=== PATIENT | female | born 1935 | race Caucasian/White ===

== ENCOUNTER 2017-06-09 09:13 | Inpatient (IN) | payer OTHER ==
[2017-05-08 14:15] VITALS: BMI 27.0
--- NOTE | 2017-05-08 14:48 | PAT Medication Instructions ---
Service Date May 08, 2017. Current Home Medication List Acetaminophen (Tylenol), 650-1,300 MG PO PRN Albuterol Hfa (Ventolin Hfa), 2-4 PUFFS INH Q6H PRN for PRN Amlodipine (Norvasc), 10 MG PO QAM Ferrous Sulfate (Iron), 325 MG PO QAM Fluticasone Furoate-Vilanterol (Breo Ellipta), 1 DOSE INH PRN Moexipril Hcl (Moexipril Hcl), 15 MG PO QAM Multivitamin (Multivitamin), 2 TAB PO QAM Paroxetine (Paxil), 20 MG PO QAM Pravastatin (Pravachol ), 20 MG PO HS Turmeric (Curcuma Longa) (Turmeric), 500 MG PO QAM [Allergy Tab], 1 TAB PO PRN Medication Instructions For Your Scheduled Surgery - Hold the following medications 2 weeks prior to surgery: Turmeric (Curcuma Longa) (Turmeric), 500 MG PO QAM - Hold the following medications the morning of surgery: [Allergy Tab], 1 TAB PO PRN Multivitamin (Multivitamin), 2 TAB PO QAM Ferrous Sulfate (Iron), 325 MG PO QAM Moexipril Hcl (Moexipril Hcl), 15 MG PO QAM - Take the following medications the morning of surgery with a sip of water: Paroxetine (Paxil), 20 MG PO QAM Fluticasone Furoate-Vilanterol (Breo Ellipta), 1 DOSE INH PRN (if needed) Amlodipine (Norvasc), 10 MG PO QAM Acetaminophen (Tylenol), 650-1,300 MG PO PRN (if needed) Albuterol Hfa (Ventolin Hfa), 2-4 PUFFS INH Q6H PRN for PRN (use if needed; bring with you to hospital morning of surgery) - Take the following medications as scheduled the night before surgery: [Allergy Tab], 1 TAB PO PRN Pravastatin (Pravachol ), 20 MG PO HS Fluticasone Furoate-Vilanterol (Breo Ellipta), 1 DOSE INH PRN (if needed) Acetaminophen (Tylenol), 650-1,300 MG PO PRN (if needed) Albuterol Hfa (Ventolin Hfa), 2-4 PUFFS INH Q6H PRN for PRN (if needed) If you have any questions please call us at [phone] or [phone] or [phone]
--- NOTE | 2017-05-08 15:22 | DIAGNOSTIC IMAGING REPORT ---
CHEST PREADMISSION(PA/LAT) CLINICAL HISTORY: Preoperative chest COMPARISON STUDY: No previous studies for comparison. FINDINGS: The heart is enlarged. There is no overt failure. Slightly prominent basilar markings are likely atelectatic. There is minimal blunting of the posterior costophrenic angles. Trace effusions cannot be excluded.[ There is no lobar consolidation IMPRESSION: Mild cardiomegaly. No evidence of acute parenchymal consolidation Electronically signed by: Alphonso Torres M.D. 05/08/2017 3:20 PM Dictated Date/Time: 05/08/2017 3:20 PM
[2017-05-08 15:26] LABS: BASO % 0.3 %; BASO ABS # 0.03 K/uL (0-0.2); COMPLETE YES; EOS % 1.5 %; HEMATOCRIT 37.8 % (37-47); IG% 0.3 %; LYMPH % 18.4 %; LYMPH ABS # 1.58 K/uL (1.2-3.4); MEAN CELL VOLUME 88.9 fL (80-100); MEAN CORPUSCULAR HEMOGLOBIN 28.9 pg (25-34); MEAN CORPUSCULAR HGB CONC 32.5 g/dl (32-36); MEAN PLATELET VOLUME 10.9 fL (7.4-10.4); MONO % 4.9 %; NEUT % 74.6 %; PLATELET COUNT 353 K/uL (130-400); RED BLOOD COUNT 4.25 M/uL (4.2-5.4)
[2017-05-08 15:36] LABS: BUN/CREATININE RATIO 19.5 (10-20); CALCIUM 8.9 mg/dl (8.5-10.1); CREATININE 0.98 mg/dl (0.60-1.20)
[2017-05-08 15:37] LABS: PARTIAL THROMBOPLASTIN RATIO 1.1; PROTHROMBIN TIME (PATIENT) 10.3 SECONDS (9.0-12.0)
[2017-05-08 15:38] LABS: URINE APPEARANCE CLEAR (CLEAR); URINE BILIRUBIN NEG (NEG); URINE COLOR YELLOW; URINE EPITHELIAL CELL AUTO >30 /lpf (0-5); URINE NITRITE NEG (NEG); URINE SPECIFIC GRAVITY 1.018 (1.000-1.030); UROBILINOGEN NEG (NEG); ZZUR CULT IF INDIC CLEAN CATCH YES
[2017-05-08 15:42] LABS: MANUAL MICROSCOPIC REQUIRED? NO; REVIEW REQ? NO
--- NOTE | 2017-06-06 16:02 | History and Physical ---
History & Physical Date Jun 06, 2017. Chief Complaint Right knee pain History of Present Illness The patient is a 82 year old female with complaints of right knee pain and disability. Xrays show severe DJD. Pt with pain and limitation of ADLs and desires to proceed with total knee arthroplasty Additional History Hepatic Disease: No Endocrine Disorder: No Kidney Disease: No Hypertension: Yes Heart Disease: No Bleeding Tendencies: No Infectious Diseases: No Other: Hyperlipidemia, depression, anemia Allergies Coded Allergies: No Known Allergies (Verified , 05/08/17) Home Medications Scheduled Acetaminophen (Tylenol), 650-1,300 MG PO PRN Amlodipine (Norvasc), 10 MG PO QAM Ferrous Sulfate (Iron), 325 MG PO QAM Fluticasone Furoate-Vilanterol (Breo Ellipta), 1 DOSE INH PRN Moexipril Hcl (Moexipril Hcl), 15 MG PO QAM Multivitamin (Multivitamin), 2 TAB PO QAM Paroxetine (Paxil), 20 MG PO QAM Pravastatin (Pravachol ), 20 MG PO HS Turmeric (Curcuma Longa) (Turmeric), 500 MG PO QAM [Allergy Tab], 1 TAB PO PRN Scheduled PRN Albuterol Hfa (Ventolin Hfa), 2-4 PUFFS INH Q6H PRN for PRN Physical Examination Skin: warm/dry Eyes: normal inspection, EOMI ENT: normal ENT inspection Head: normocephalic, atraumatic Neck: supple, no adenopathy Respiratory/Chest: lungs clear Cardiovascular: regular rate, rhythm Abdomen / GI: normal bowel sounds, non tender Extremities: + pertinent finding (Right knee neutrally aligned. Pt complains primarily of medial compartment pain. ROM ~ 0-120 degrees. Mild crepitus with ROM) Addiitonal Comments: Xrays: severe bone on bone arthritis medial compartment with complete loss of joint space. Large calcification posterior knee. Moderate PF DJD Diagnosis Right knee end-stage DJD Plan of Treatment Right total knee arthroplasty
[2017-06-09] VITALS (9 sets, daily range): BP systolic 123–176; BP diastolic 57–81; PULSE 65–70; TEMP 36.4–36.9; O2SAT 90–98; Ht 157.5 cm; Wt 68.8 kg
[~2017-06-09] VITALS: Ht 157.5 cm; Wt 68.8 kg
--- NOTE | 2017-06-09 08:07 | History & Physical Bridge Note ---
H&P Re-Evaluation Bridge Note: I have examined the patient, reviewed the History & Physical and in the interval since the performance of the History & Physical I have noted the following changes of clinical significance: No changes noted
[~2017-06-09 09:13] MED LIST: ACET650S10 PO; ACETAMINOPHEN 500 MG TAB PO SCH; ALLERGY TAB PO; AMLO-114 PO; BUPIVACAINE 0.5 % 5 MG/1 ML PF 10ML VIAL ONE; BUPIVACAINE/EPINEPHRINE 0.5% MPF 1:200,000 10 ML VIAL ONE; CEFAZOLIN 2000 MG/60 ML D5W 60 ML IV SCH; CeleBREX 200 MG CAP PO SCH; DEXAMETHASONE 4 MG TAB PO SCH; DEXAMETHASONE SOD INJ 4 MG/ML VIAL ONE; FAMOTIDINE 20 MG TAB PO SCH; FERR1TAB23 PO; FLUT1INH INH; GABAPENTIN 300 MG CAP PO SCH; LACTATED RINGER'S 1000ML 1,000 ML IV SCH; METOCLOPRAMIDE HCL 10 MG TAB PO SCH; MOEX15TA4 PO; MULT-506 PO; PARO1TAB27 PO; PRAV20TA PO; ROPIVACAINE 5MG/ML 30 ML 150 MG, BUPIVACAINE/EPINEPHR 0.5% MPF 30 ML, KETOROLAC TROMETH... INFIL SCH; SODIUM CHLORIDE 0.9% INJ 10 ML VIAL ONE; TURM1CAP4 PO; VNTHFA/IN INH
[2017-06-09] MEDS ORDERED: PROPOFOL IV EMULSION 10 MG/ML 20 ML VIAL IV ONE (09:46)
[2017-06-09] MEDS ORDERED: ONDANSETRON INJ 2 MG/ML 2 ML VIAL ONE (09:46)
[2017-06-09] MEDS ORDERED: MIDAZOLAM HCL 1 MG/ML 2ML VIAL ONE ×2 (09:47)
[2017-06-09] MEDS ORDERED: FENTANYL CITRATE INJ 50 MCG/1 ML 2 ML VIAL ONE (09:47)
[2017-06-09] MEDS ORDERED: BACITRACIN 50000 UNIT VIAL ONE (10:40)
[2017-06-09] MEDS ORDERED: ORTHO JOINT ANESTHETIC ONE (10:40)
[2017-06-09] MEDS ORDERED: POVIDONE-IODINE OP SOLN 30 ML BTL ONE (10:40)
[2017-06-09] MEDS: TRANEXAMIC ACID INJ 1,000 MG in SODIUM CHLORIDE 0.9% 100ML 100 ML IV SCH ×2 (10:58→14:51)
[2017-06-09] MEDS ORDERED: EpHEDrine SULFATE INJ 50 MG/ML AMP IV PRN (11:30)
[2017-06-09] MEDS ORDERED: ONDANSETRON INJ 2 MG/ML 2 ML VIAL IV PRN ×2 (11:30→13:00)
[2017-06-09] MEDS ORDERED: FENTANYL CITRATE INJ 50 MCG/1 ML 2 ML VIAL IV PRN (11:30)
[2017-06-09] MEDS ORDERED: PROMETHAZINE HCL INJ 6.25 MG in SODIUM CHLORIDE 0.9% 50ML 50 ML IV PRN (11:30)
[2017-06-09] MEDS ORDERED: ATROPINE SULFATE 0.1 MG/ML 5ML SYR IV PRN (11:30)
[2017-06-09] MEDS ORDERED: EpHEDrine SULFATE 50MG/5ML SYR ONE (11:40)
--- NOTE | 2017-06-09 12:22 | [facility] Post Operative Brief Note ---
Immediate Operative Summary Operative Date Jun 09, 2017. Pre-Operative Diagnosis Right knee end-stage degenerative joint disease Post-Operative Diagnosis Right knee end-stage degenerative joint disease Procedure(s) Performed Right total knee arthroplasty Surgeon Dr. Valle Aerospace Engineer Officer Armament Surgeon(s) Hiren Ren PA-C Estimated Blood Loss 10 ML Findings severe OA Specimens A. Right knee bone and tissue Complication(s) None Disposition Recovery Room / PACU
[2017-06-09] MEDS ORDERED: MAGNESIUM HYDROXIDE SUSP 30 ML UDC PO PRN (13:00)
[2017-06-09] MEDS ORDERED: ALBUTEROL HFA 8 GM INHALER INH PRN (13:00)
[2017-06-09] MEDS ORDERED: ALUMINUM/MAGNESIUM/SIMETH (MAALOX MAX) 30 ML UDC PO PRN (13:00)
[2017-06-09] MEDS ORDERED: MoRPHine SULFATE 2 MG/ML CARP IV PRN (13:00)
[2017-06-09] MEDS ORDERED: BISACODYL 10 MG SUPP PR PRN (13:00)
--- NOTE | 2017-06-09 13:36 | DIAGNOSTIC IMAGING REPORT ---
RIGHT KNEE 1 OR 2 VIEWS ROUTINE CLINICAL HISTORY: Postoperative examination COMPARISON: None. DISCUSSION: There are postsurgical changes of a total right knee arthroplasty and patellar resurfacing. The femoral and tibial components appear well seated. Overlying skin madie and surgical drains are evident. There is air within soft tissues consistent with recent surgery. Within the posterior medial soft tissues of the distal upper leg there is a fragmented 22 mm ossific nodule. IMPRESSION: Postsurgical changes of a total right knee arthroplasty. Electronically signed by: Alphonso Torres M.D. 06/09/2017 1:34 PM Dictated Date/Time: 06/09/2017 1:32 PM
--- NOTE | 2017-06-09 13:37 | Anesthesiology Progress Note ---
Anesthesia Post Op Note Date & Time Jun 09, 2017 at 13:37 Vital Signs Pain Intensity: 0 Vital Signs Past 12 Hours Date Time Temp Pulse Resp B/P (MAP) Pulse Ox O2 Delivery O2 Flow Rate FiO2 06/09/17 13:33 65 18 06/09/17 13:33 64 18 96 06/09/17 13:31 143/64 06/09/17 13:28 69 20 06/09/17 13:28 69 20 97 06/09/17 13:26 153/69 06/09/17 13:23 68 16 06/09/17 13:23 69 16 97 06/09/17 13:21 37.3 68 22 153/69 98 Nasal Cannula 10 06/09/17 13:21 140/67 06/09/17 13:18 64 18 06/09/17 13:18 64 18 97 06/09/17 13:17 65 19 06/09/17 13:17 65 19 98 06/09/17 13:16 137/64 06/09/17 13:12 63 20 06/09/17 13:12 63 20 95 06/09/17 13:11 130/62 06/09/17 13:10 62 17 98 06/09/17 13:10 62 17 06/09/17 13:07 117/60 06/09/17 13:05 64 18 06/09/17 13:05 62 18 98 06/09/17 13:02 132/60 06/09/17 13:00 64 19 06/09/17 13:00 64 19 100 06/09/17 12:56 149/61 06/09/17 12:55 68 20 100 06/09/17 12:55 67 20 06/09/17 12:52 144/56 06/09/17 12:50 37.3 66 16 144/56 (73) 97 Mask 10 06/09/17 09:55 36.6 65 18 176/81 95 Room Air Notes Mental Status: alert / awake / arousable, participated in evaluation Pt Amnestic to Procedure: Yes Nausea / Vomiting: adequately controlled Pain: adequately controlled Airway Patency, RR, SpO2: stable & adequate BP & HR: stable & adequate Hydration State: stable & adequate Neuraxial Anesthesia: was administered, sensory block is resolving Anesthetic Complications: no major complications apparent
[2017-06-09] MEDS: D5W AND 1/2NSS + 20MEQ KCL 1,000 ML IV SCH (15:41)
--- NOTE | 2017-06-09 15:45 | Medical Consult ---
Consultation Date of Consultation: Jun 09, 2017. Attending Physician: Hilario Valle M.D. Reason for Consultation: Medical management History of Present Illness This is an 82 yo F with PMHx of hypertension, hyperlipidemia, GERD, anemia, depression, COPD who does not use supplemental oxygen who presents for an elective right TKA by Dr. Valle on 06/09/17. She is awake, eating lunch and visiting with her 2 daughters present at bedside. Patient reports she is doing well, she denies having any pain currently, and has no other acute complaints. Patient plans on going home with home health services/his therapy and will be staying with her daughter, she previously lived alone in her own home. The patient's blood pressure is slightly elevated in the 140s postoperatively however she did not receive her scheduled antihypertensives today in light of surgical procedure. She is on 2 L via NC currently and is requesting to have it removed if possible. Past Medical/Surgical History Hypertension Hyperlipidemia COPD GERD Anemia Depression Social History Smoking Status: Former Smoker Alcohol Use: none Drug Use: none Housing Status: lives alone Allergies Coded Allergies: No Known Allergies (Verified , 06/09/17) Current Inpatient Medications Current Inpatient Medications Medications (Trade) Dose Ordered Sig/Deonna Route Start Time Stop Time Status Last Admin Dose Admin Lactated Ringer's 1,000 ml @ 15 mls/hr Q24H IV 06/09/17 06:00 06/10/17 05:59 06/09/17 10:51 15 MLS/HR Lactated Ringer's 1,000 ml @ 60 mls/hr [id number] IV 06/09/17 06:00 06/09/17 22:39 Cefazolin Sodium 60 ml @ 100 mls/hr PREOP IV 06/09/17 06:00 06/09/17 18:00 06/09/17 11:14 100 MLS/HR Acetaminophen (Tylenol Tab) 1,000 mg PREOP PO 06/09/17 06:00 06/09/17 18:00 06/09/17 10:15 1,000 MG Celecoxib (CeleBREX CAP) 200 mg PREOP PO 06/09/17 06:00 06/09/17 18:00 06/09/17 10:15 200 MG Dexamethasone (Decadron Tab) 8 mg PREOP PO 06/09/17 06:00 06/09/17 18:00 06/09/17 10:15 8 MG Famotidine (Pepcid Tab) 20 mg PREOP PO 06/09/17 06:00 06/09/17 18:00 06/09/17 10:15 20 MG Gabapentin (Neurontin Cap) 300 mg PREOP PO 06/09/17 06:00 06/09/17 18:00 06/09/17 10:15 300 MG Metoclopramide HCl (Reglan Tab) 10 mg PREOP PO 06/09/17 06:00 06/09/17 18:00 06/09/17 10:15 10 MG Tranexamic Acid 1000 mg/Sodium Chloride 110 ml @ 660 mls/hr TODAY@06,0630 IV 06/09/17 06:00 06/09/17 18:00 06/09/17 10:58 660 MLS/HR Fentanyl Citrate (Fentanyl Inj) 50 mcg Q5M PRN IV 06/09/17 11:30 06/09/17 16:30 Ondansetron HCl (Zofran Inj) 4 mg ONE PRN IV 06/09/17 11:30 06/09/17 16:30 Promethazine HCl 6.25 mg/Sodium Chloride 50.25 ml @ 202 mls/hr ONE PRN IV 06/09/17 11:30 06/09/17 16:30 Ephedrine Sulfate (EpHEDrine SULFATE INJ) 5 mg Q5M PRN IV 06/09/17 11:30 06/09/17 16:30 Atropine Sulfate (Atropine Sulfate 0.1MG/Ml Inj) 0.5 mg Q1M PRN IV 06/09/17 11:30 06/09/17 16:30 Albuterol (Ventolin Hfa Inhaler) 2 puffs Q6H PRN INH 06/09/17 13:00 07/09/17 12:59 Amlodipine Besylate (Norvasc Tab) 10 mg QAM PO 06/10/17 09:00 07/10/17 08:59 Paroxetine HCl (pAXil TAB) 20 mg QAM PO 06/10/17 09:00 07/10/17 08:59 Pravastatin Sodium (Pravachol Tab) 20 mg HS PO 06/09/17 21:00 07/09/17 20:59 Miscellaneous Information (Order Awaiting Action) 1 ea QS N/A 06/09/17 16:00 07/09/17 15:59 Enalapril Maleate (Vasotec Tab) 20 mg QAM PO 06/10/17 09:00 07/10/17 08:59 Morphine Sulfate (MoRPHine SULFATE INJ) 2 mg Q4HWA PRN IV 06/09/17 13:00 06/23/17 12:59 Potassium Chloride/Dextrose/ Sod Cl 1,000 ml @ 100 mls/hr Q10H IV 06/09/17 15:00 06/10/17 12:54 Cefazolin Sodium 1000 mg/Dextrose 55 ml @ 100 mls/hr Q8H IV 06/09/17 20:00 06/10/17 04:32 Oxycodone HCl (Roxicodone Immediate Rel Tab) 1 TABLET FOR PAIN RATING... Q4H PRN PO 06/09/17 13:00 06/23/17 12:59 Acetaminophen (Tylenol Tab) 1,000 mg Q8 PO 06/09/17 18:00 07/09/17 17:59 Magnesium Hydroxide (Milk Of Magnesia Susp) 30 ml Q6H PRN PO 06/09/17 13:00 07/09/17 12:59 Bisacodyl (Dulcolax Supp) 10 mg DAILY PRN HI 06/09/17 13:00 07/09/17 12:59 Docusate Sodium (coLACE CAP) 100 mg BID PO 06/09/17 21:00 07/09/17 20:59 Al Hydrox/Mg Hydrox/Simethicone (Maalox Max Susp) 15 ml Q4H PRN PO 06/09/17 13:00 07/09/17 12:59 Multivitamins (Multivitamin Tab) 1 tab QAM PO 06/10/17 09:00 07/10/17 08:59 Ondansetron HCl (Zofran Inj) 4 mg Q6H PRN IV 06/09/17 13:00 07/09/17 12:59 Ferrous Gluconate (Ferrous Gluconate Tab) 324 mg TIDM PO 06/09/17 17:45 07/09/17 17:59 Pantoprazole Sodium (Protonix Tab) 40 mg QAM PO 06/10/17 09:00 07/10/17 08:59 Tramadol HCl (Ultram Tab) 1 tablet for pain rating... Q4H PRN PO 06/09/17 13:00 07/09/17 12:59 Aspirin (Ecotrin Tab) 81 mg BID PO 06/09/17 21:00 07/09/17 20:59 Review of Systems Constitutional: No fever, sweats or chills Eyes: No diplopia, no worsening or blurred vision ENT: normal hearing, no trouble swallowing Respiratory: No cough, sputum, dyspnea at rest or on exertion Cardiovascular: No chest pain, tightness or palpitations Abdomen: No pain, nausea, vomiting, diarrhea or constipation Musculoskeletal: No joint pain, calf pain, swelling Neurologic: No weakness, numbness/tingling, or balance problems Psychiatric: No anxiety or depression Skin: No rash or itch Physical Exam Date Time Temp Pulse Resp B/P (MAP) Pulse Ox O2 Delivery O2 Flow Rate FiO2 06/09/17 15:00 36.4 67 18 123/61 (81) 96 Nasal Cannula 2.0 06/09/17 14:36 70 16 145/71 (95) 95 06/09/17 14:00 Nasal Cannula 2.0 06/09/17 14:00 36.6 69 20 146/69 (94) 96 Nasal Cannula 2.0 06/09/17 13:51 140/61 06/09/17 13:49 67 22 06/09/17 13:49 67 22 96 06/09/17 13:46 139/74 06/09/17 13:44 67 22 91 06/09/17 13:44 66 22 06/09/17 13:42 137/61 06/09/17 13:39 66 21 06/09/17 13:39 67 21 96 06/09/17 13:36 145/65 06/09/17 13:34 64 17 95 06/09/17 13:34 64 17 06/09/17 13:33 65 18 06/09/17 13:33 64 18 96 06/09/17 13:31 143/64 06/09/17 13:28 69 20 06/09/17 13:28 69 20 97 06/09/17 13:26 153/69 06/09/17 13:23 68 16 06/09/17 13:23 69 16 97 06/09/17 13:21 37.3 68 22 153/69 98 Nasal Cannula 10 06/09/17 13:21 140/67 06/09/17 13:18 64 18 06/09/17 13:18 64 18 97 06/09/17 13:17 65 19 06/09/17 13:17 65 19 98 06/09/17 13:16 137/64 06/09/17 13:12 63 20 06/09/17 13:12 63 20 95 06/09/17 13:11 130/62 06/09/17 13:10 62 17 98 06/09/17 13:10 62 17 06/09/17 13:07 117/60 06/09/17 13:05 64 18 06/09/17 13:05 62 18 98 06/09/17 13:02 132/60 06/09/17 13:00 64 19 06/09/17 13:00 64 19 100 06/09/17 12:56 149/61 06/09/17 12:55 68 20 100 06/09/17 12:55 67 20 06/09/17 12:52 144/56 06/09/17 12:50 37.3 66 16 144/56 (73) 97 Mask 10 06/09/17 09:55 36.6 65 18 176/81 95 Room Air General: awake, alert, no apparent distress, sitting upright in bed eating lunch Head: Normocephalic, atraumatic ENT: PERRL, EOMI, no pharyngeal exudate, mucous membranes moist Chest: + Diminished breath sounds throughout, on 2 L via NC, no adventitious breath sounds Cardiac: Regular rate and rhythm,+ holosystolic ejection murmur, no JVD, normal peripheral pulses, good capillary refill Abdominal: NABS x 4 quadrants, soft, nontender to palpation, no rebound, guarding or tenderness Extremities: RLE in CATIE wrap, ice pack overlying the knee, otherwise normal inspection, no peripheral edema or erythema, calfs nontender to palpation Psych: Normal mood and affect Neuro: AAO x 3, strength intact bilaterally and related 5/5, no motor deficits, speech is clear, no peripheral sensory deficits Assessment & Plan This is an 82 yo F with PMHx of hypertension, hyperlipidemia, GERD, anemia, COPD who does not use supplemental oxygen who presents for an elective right TKA by Dr. Yanez on 06/09/17. S/p R TKA - Pain management per primary team; tramadol 50-100mg Q4H prn, acetaminophen 1000mg Q8H scheduled - Bowel regimen in place - ASA 81 mg BID for DVT ppx - Can continue maintenance fluids D51/2 + K+ 20 meq x 1 day, will consider turning off fluids if blood pressure continues to rise. 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 Reviewed: Pt Seen/Exam by Me History Physician Electronic Communications Technician Supervision Note: I interviewed and examined the patient. Discussed with NATALIE Walker and agree with findings and plan as documented in the note. Any exceptions or clarifications are listed here: Pt here with Right TKA, doing very well post-op. The h/o her anemia was secondary to bleeding in her small intestine as per pt and her daughters, she has remained on Fe tabs and was told there was nothing much else to do about it. Hgb is normal on preop labs. Vitals reviewed NAD , AAOx3 RRR no mgr CTAB, breathing unlabored Abd +BS soft NT ND Ext: Rt knee with CATIE wrap and dressing in place, c/d/i, left leg no edema or calf tenderness 82 yo female here with right TKA. -continue FeSO4 for her anemia and follow CBC although previous GI bleeding seems to have resolved -Ortho management post-op for TKA, ASA bid for DVT proph Documented By: Judy Ornelas
[2017-06-09] MEDS: AMLODIPINE BESYLATE 5 MG TAB PO SCH (15:53)
[2017-06-09] MEDS: FERROUS GLUCONATE 324 MG TAB PO SCH (18:03)
[2017-06-09] MEDS: ACETAMINOPHEN 500 MG TAB PO SCH (18:05)
[2017-06-09] MEDS: CEFAZOLIN IV 1,000 MG in DEXTROSE 5% 50ML 50 ML IV SCH (20:45)
[2017-06-09] MEDS: PRAVASTATIN SOD 20 MG TAB PO SCH (20:48)
[2017-06-09] MEDS: ASPIRIN 81 MG ECTAB PO SCH (20:48)
[2017-06-09] MEDS: DOCUSATE SODIUM 100 MG CAP PO SCH (20:49)
[2017-06-10] MEDS: D5W AND 1/2NSS + 20MEQ KCL 1,000 ML IV SCH ×2 (01:46→10:28)
[2017-06-10 03:35] VITALS: BP 128/62; PULSE 65; TEMP 36.6; O2SAT 92
[2017-06-10] MEDS: CEFAZOLIN IV 1,000 MG in DEXTROSE 5% 50ML 50 ML IV SCH (04:16)
[2017-06-10] MEDS: ACETAMINOPHEN 500 MG TAB PO SCH ×3 (05:55→21:27)
[2017-06-10 07:11] LABS: HEMATOCRIT 30.4 % (37-47); MEAN CELL VOLUME 88.4 fL (80-100); MEAN CORPUSCULAR HEMOGLOBIN 29.1 pg (25-34); MEAN CORPUSCULAR HGB CONC 32.9 g/dl (32-36); MEAN PLATELET VOLUME 10.9 fL (7.4-10.4); PLATELET COUNT 252 K/uL (130-400); RED BLOOD COUNT 3.44 M/uL (4.2-5.4); WHITE BLOOD COUNT 15.13 K/uL (4.8-10.8)
[2017-06-10 07:41] LABS: BUN/CREATININE RATIO 21.9 (10-20); CALCIUM 8.4 mg/dl (8.5-10.1); CREATININE 0.94 mg/dl (0.60-1.20); POTASSIUM 4.8 mmol/L (3.5-5.1)
[2017-06-10 07:52] VITALS: BP 140/64; PULSE 66; TEMP 36.7; O2SAT 95
--- NOTE | 2017-06-10 08:12 | Orthopedic Progress Note ---
Orthopedic Progress Note Date of Service Jun 10, 2017. Subjective Post OP Day: 1 Reports: feeling well, Denies: chest pain, SOB, nausea / vomiting, light headedness, calf pain Objective calves soft nontender, N/V intact, dressing C/D/I, A&O x3, toes mobile, hemovac drainage (135/25 CC PER SHIFT) Date Time Temp Pulse Resp B/P (MAP) Pulse Ox O2 Delivery O2 Flow Rate FiO2 06/10/17 07:52 36.7 66 14 140/64 (89) 95 Room Air 06/10/17 07:47 Room Air 06/10/17 03:35 36.6 65 16 128/62 (84) 92 Room Air 06/09/17 23:15 Room Air 06/09/17 23:05 36.6 70 16 128/57 (80) 90 Room Air 06/09/17 18:54 36.8 69 20 136/61 (86) 97 Room Air 06/09/17 16:55 36.7 69 18 124/63 (83) 98 Nasal Cannula 2.0 06/09/17 16:30 98 Nasal Cannula 2.0 06/09/17 15:55 36.9 66 18 131/70 (90) 98 Nasal Cannula 2.0 06/09/17 15:00 36.4 67 18 123/61 (81) 96 Nasal Cannula 2.0 06/09/17 14:36 70 16 145/71 (95) 95 06/09/17 14:00 Nasal Cannula 2.0 06/09/17 14:00 96 Nasal Cannula 2.0 06/09/17 14:00 36.6 69 20 146/69 (94) 96 Nasal Cannula 2.0 06/09/17 13:51 140/61 06/09/17 13:49 67 22 06/09/17 13:49 67 22 96 06/09/17 13:46 139/74 06/09/17 13:44 67 22 91 06/09/17 13:44 66 22 06/09/17 13:42 137/61 06/09/17 13:39 66 21 06/09/17 13:39 67 21 96 06/09/17 13:36 145/65 06/09/17 13:34 64 17 95 06/09/17 13:34 64 17 06/09/17 13:33 65 18 06/09/17 13:33 64 18 96 06/09/17 13:31 143/64 06/09/17 13:28 69 20 06/09/17 13:28 69 20 97 06/09/17 13:26 153/69 06/09/17 13:23 68 16 06/09/17 13:23 69 16 97 06/09/17 13:21 37.3 68 22 153/69 98 Nasal Cannula 10 06/09/17 13:21 140/67 06/09/17 13:18 64 18 06/09/17 13:18 64 18 97 06/09/17 13:17 65 19 06/09/17 13:17 65 19 98 06/09/17 13:16 137/64 06/09/17 13:12 63 20 06/09/17 13:12 63 20 95 06/09/17 13:11 130/62 06/09/17 13:10 62 17 98 06/09/17 13:10 62 17 06/09/17 13:07 117/60 06/09/17 13:05 64 18 06/09/17 13:05 62 18 98 06/09/17 13:02 132/60 06/09/17 13:00 64 19 06/09/17 13:00 64 19 100 06/09/17 12:56 149/61 06/09/17 12:55 68 20 100 06/09/17 12:55 67 20 06/09/17 12:52 144/56 06/09/17 12:50 37.3 66 16 144/56 (73) 97 Mask 10 06/09/17 09:55 36.6 65 18 176/81 95 Room Air Laboratory Results 24 Hours: Test 06/10/17 06:25 Hematocrit 30.4 % Hemoglobin 10.0 g/dL Assessment & Plan Assessment: POD#1 SP RIGHT TKA Inhouse Planning Pain Management: Celebrex, PO Tylenol, Oxy IR DVT Prophylaxis: TEDs, SCDs, ASA Discharge Planning Discharge Planning: home with home health ( [facility] )
[2017-06-10] MEDS: CHOLECALCIFEROL 1000 INTER.UNIT TAB PO SCH (08:30)
[2017-06-10] MEDS: AMLODIPINE BESYLATE 5 MG TAB PO SCH (08:30)
[2017-06-10] MEDS: ASPIRIN 81 MG ECTAB PO SCH ×2 (08:30→21:26)
[2017-06-10] MEDS: MULTIVITAMIN TAB PO SCH (08:31)
[2017-06-10] MEDS: PAROXETINE 20 MG TAB PO SCH (08:31)
[2017-06-10] MEDS: ENALAPRIL MALEATE 10 MG TAB PO SCH (08:31)
[2017-06-10] MEDS: PANTOprazole SOD 40 MG TAB PO SCH (08:32)
[2017-06-10] MEDS: DOCUSATE SODIUM 100 MG CAP PO SCH ×2 (08:32→21:26)
[2017-06-10] MEDS: FERROUS GLUCONATE 324 MG TAB PO SCH ×3 (08:32→17:29)
[2017-06-10] MEDS ORDERED: AMLODIPINE BESYLATE 5 MG TAB PO SCH (09:00)
[2017-06-10 09:19] VITALS: O2SAT 95
--- NOTE | 2017-06-10 11:30 | Hospitalist Progress Note ---
Hospitalist Progress Note Date of Service Jun 10, 2017. Subjective Pt evaluation today including: conversation w/ patient, conversation w/ family , physical exam, chart review Patient seen and evaluated. Ambulating with PT without difficulty. Daughter at bedside. Verbalizes no complaints. BP acceptable. Constitutional: No fever, No chills Respiratory: No cough, No shortness of breath Cardiovascular: No chest pain, No palpitations Abdomen: No pain, No nausea, No vomiting Musculoskeletal: No swelling, No calf pain Female : No dysuria Heme: No abnormal bleeding/bruising Medications Current Inpatient Medications Medications (Trade) Dose Ordered Sig/Deonna Route Start Time Stop Time Status Last Admin Dose Admin Albuterol (Ventolin Hfa Inhaler) 2 puffs Q6H PRN INH 06/09/17 13:00 07/09/17 12:59 Paroxetine HCl (pAXil TAB) 20 mg QAM PO 06/10/17 09:00 07/10/17 08:59 06/10/17 08:31 20 MG Pravastatin Sodium (Pravachol Tab) 20 mg HS PO 06/09/17 21:00 07/09/17 20:59 06/09/17 20:48 20 MG Miscellaneous Information (Order Awaiting Action) 1 ea QS N/A 06/09/17 16:00 07/09/17 15:59 Enalapril Maleate (Vasotec Tab) 20 mg QAM PO 06/10/17 09:00 07/10/17 08:59 06/10/17 08:31 20 MG Morphine Sulfate (MoRPHine SULFATE INJ) 2 mg Q4HWA PRN IV 06/09/17 13:00 06/23/17 12:59 Potassium Chloride/Dextrose/ Sod Cl 1,000 ml @ 100 mls/hr Q10H IV 06/09/17 15:00 06/10/17 12:54 06/10/17 01:46 100 MLS/HR Oxycodone HCl (Roxicodone Immediate Rel Tab) 1 TABLET FOR PAIN RATING... Q4H PRN PO 06/09/17 13:00 06/23/17 12:59 Acetaminophen (Tylenol Tab) 1,000 mg Q8 PO 06/09/17 18:00 07/09/17 17:59 06/10/17 05:55 1,000 MG Magnesium Hydroxide (Milk Of Magnesia Susp) 30 ml Q6H PRN PO 06/09/17 13:00 07/09/17 12:59 Bisacodyl (Dulcolax Supp) 10 mg DAILY PRN [place] 06/09/17 13:00 07/09/17 12:59 Docusate Sodium (coLACE CAP) 100 mg BID PO 06/09/17 21:00 07/09/17 20:59 06/10/17 08:32 100 MG Al Hydrox/Mg Hydrox/Simethicone (Maalox Max Susp) 15 ml Q4H PRN PO 06/09/17 13:00 07/09/17 12:59 Multivitamins (Multivitamin Tab) 1 tab QAM PO 06/10/17 09:00 07/10/17 08:59 Ondansetron HCl (Zofran Inj) 4 mg Q6H PRN IV 06/09/17 13:00 07/09/17 12:59 Ferrous Gluconate (Ferrous Gluconate Tab) 324 mg TIDM PO 06/09/17 17:45 07/09/17 17:59 06/10/17 11:56 324 MG Pantoprazole Sodium (Protonix Tab) 40 mg QAM PO 06/10/17 09:00 07/10/17 08:59 06/10/17 08:32 40 MG Tramadol HCl (Ultram Tab) 1 tablet for pain rating... Q4H PRN PO 06/09/17 13:00 07/09/17 12:59 Aspirin (Ecotrin Tab) 81 mg BID PO 06/09/17 21:00 07/09/17 20:59 06/10/17 08:30 81 MG Amlodipine Besylate (Norvasc Tab) 10 mg QAM PO 06/09/17 15:45 07/10/17 08:59 06/10/17 08:30 10 MG Cholecalciferol (Vitamin D Tab) 2,000 inter.unit QAM PO 06/10/17 09:00 07/10/17 08:59 06/10/17 08:30 2,000 INTER.UNIT Objective Vital Signs Date Time Temp Pulse Resp B/P (MAP) Pulse Ox O2 Delivery O2 Flow Rate FiO2 06/10/17 09:19 95 Room Air 06/10/17 07:52 36.7 66 14 140/64 (89) 95 Room Air 06/10/17 07:47 Room Air 06/10/17 03:35 36.6 65 16 128/62 (84) 92 Room Air 06/09/17 23:15 Room Air 06/09/17 23:05 36.6 70 16 128/57 (80) 90 Room Air 06/09/17 18:54 36.8 69 20 136/61 (86) 97 Room Air 06/09/17 16:55 36.7 69 18 124/63 (83) 98 Nasal Cannula 2.0 06/09/17 16:30 98 Nasal Cannula 2.0 06/09/17 15:55 36.9 66 18 131/70 (90) 98 Nasal Cannula 2.0 06/09/17 15:00 36.4 67 18 123/61 (81) 96 Nasal Cannula 2.0 06/09/17 14:36 70 16 145/71 (95) 95 06/09/17 14:00 Nasal Cannula 2.0 06/09/17 14:00 96 Nasal Cannula 2.0 06/09/17 14:00 36.6 69 20 146/69 (94) 96 Nasal Cannula 2.0 06/09/17 13:51 140/61 06/09/17 13:49 67 22 06/09/17 13:49 67 22 96 06/09/17 13:46 139/74 06/09/17 13:44 67 22 91 17 13:44 66 22 17 13:42 137/61 06/09/17 13:39 66 21 06/09/17 13:39 67 21 96 06/09/17 13:36 145/65 06/09/17 13:34 64 17 95 17 13:34 64 17 17 13:33 65 18 06/09/17 13:33 64 18 96 06/09/17 13:31 143/64 17 13:28 69 20 17 13:28 69 20 97 17 13:26 153/69 17 13:23 68 16 17 13:23 69 16 97 06/09/17 13:21 37.3 68 22 153/69 98 Nasal Cannula 10 06/09/17 13:21 140/67 06/09/17 13:18 64 18 06/09/17 13:18 64 18 97 06/09/17 13:17 65 19 06/09/17 13:17 65 19 98 06/09/17 13:16 137/64 06/09/17 13:12 63 20 06/09/17 13:12 63 20 95 06/09/17 13:11 130/62 06/09/17 13:10 62 17 98 06/09/17 13:10 62 17 06/09/17 13:07 117/60 06/09/17 13:05 64 18 06/09/17 13:05 62 18 98 06/09/17 13:02 132/60 06/09/17 13:00 64 19 06/09/17 13:00 64 19 100 06/09/17 12:56 149/61 06/09/17 12:55 68 20 100 06/09/17 12:55 67 20 06/09/17 12:52 144/56 06/09/17 12:50 37.3 66 16 144/56 (73) 97 Mask 10 Physical Exam General Appearance: WD/WN, no apparent distress Eyes: sclerae normal ENT: hearing grossly normal Neck: supple, no JVD, trachea midline Respiratory/Chest: lungs clear, normal breath sounds, no respiratory distress, no accessory muscle use Cardiovascular: regular rate, rhythm, no gallop, + systolic murmur Abdomen: normal bowel sounds, non tender, soft Extremities: no pedal edema, no calf tenderness, + pertinent finding (drain with dark red blood; CATIE wrap that is clean/dry/intact) Neurologic/Psychiatric: alert, oriented x 3 Skin: normal color, warm/dry Laboratory Results Last 24 Hours Test 06/10/17 06:25 White Blood Count 15.13 K/uL Red Blood Count 3.44 M/uL Hemoglobin 10.0 g/dL Hematocrit 30.4 % Mean Corpuscular Volume 88.4 fL Mean Corpuscular Hemoglobin 29.1 pg Mean Corpuscular Hemoglobin Concent 32.9 g/dl RDW Standard Deviation 43.6 fL RDW Coefficient of Variation 13.5 % Platelet Count 252 K/uL Mean Platelet Volume 10.9 fL Sodium Level 138 mmol/L Potassium Level 4.8 mmol/L Chloride Level 106 mmol/L Carbon Dioxide Level 25 mmol/L Anion Gap 7.0 mmol/L Blood Urea Nitrogen 21 mg/dl Creatinine 0.94 mg/dl Est Creatinine Clear Calc Drug Dose 42.7 ml/min Estimated GFR () 65.9 Estimated GFR (Non- 56.9 BUN/Creatinine Ratio 21.9 Random Glucose 166 mg/dl Calcium Level 8.4 mg/dl 25-Hydroxy Vitamin D Total 30.8 ng/ml Assessment and Plan This is an 82 yo F with PMHx of hypertension, hyperlipidemia, GERD, anemia, COPD who does not use supplemental oxygen who presents for an elective right TKA by Dr. Yanez on 06/09/17. S/P R TKA: - Pain Management, IVF, DVT Prophylaxis, PT/OT per primary - ASA 81 mg BID for DVT ppx Hypertension: - Norvasc 10 mg daily - Substitute enalapril 20 mg daily for [employer] SUPER[employer] moexipril hcl 15 mg daily Vitamin D Deficiency: - Vitamin D improved and can continue daily supplementation Hyperlipidemia: - Pravastatin 20 mg PO HS Depression: - Paxil 20 mg QAM Thank you for the consultation. We will continue to follow.
[2017-06-10 12:17] VITALS: BP 134/64; PULSE 66; TEMP 36.7; O2SAT 94
[2017-06-10 15:12] VITALS: BP 143/68; PULSE 71; TEMP 36.8; O2SAT 93
[2017-06-10] MEDS ORDERED: TEMAZEPAM 7.5 MG CAP PO PRN (15:30)
--- NOTE | 2017-06-10 15:44 | [facility] Operative Report ---
Operative Report Operative Date Jun 10, 2017. Pre-Operative Diagnosis Right knee end-stage degenerative joint disease Post-Operative Diagnosis Right knee end-stage degenerative joint disease Procedure(s) Performed Right total knee arthroplasty patient's right knee was prepped and draped in usual sterile manner. Limb was exsanguinated with an Esmarch bandage and tourniquet was inflated to 200 300 mmHg. Longitudinal incision was made some retained sutures sharp dissected electrocautery masses usually hemostasis. The and parapatellar incision was made the patella was everted and he was flexed. The fat pad was removed exposing severe osteoarthritis. The next medullary alignment guide was placed and the proximal tibial cut was made after clearing the medial face the tibia soft tissue with a Atwood and holding it back with a blunt Francine. This Broom bone fragment was removed. Next attention was turned to the femur where drill was used to get axis to the femoral canal. The flexible IM alignment guide was placed and a distal femoral cut was made. Following this Surya Accurso made using a size 4 chamfer cutting guide. The notch was prepared this bone fragment was reserved and prepared for placement femoral canal. The trial femoral component was impacted into the position and the hip quite well. Next the tibia was subluxed anteriorly using a blunt Francine and a size 3 tibial component was chosen size views this baseplate was placed. The punch was utilized to create the receiving hole for the tibial splines. Trial reduction was carried out and a size 11 mm Pauling gave good reproduction of soft tissue tension with collateral stability. The patella was then prepared using a reamer and drill trial to patella component was placed and the knee was able to be taken through full range of motion without any patellar instability. Wound was irrigated at removal wall trial components joint mix injected pericapsular really final hemostasis with WAS obtained especially posteriorly and the cement was mixed while the bone ends were dried. All components were cemented into position excess cement was removed and the knee was held in extension while cement hardened Hemovac drain was placed and the Betadine soak was placed and then suctioned out the wound was closed #1 Vicryl used to close the extensor mechanism some retained sutures closed using 0 Dexon and skin was closed with a sip strip sterile dressing of Adaptic [place] sterile dressing with a Silverlon was applied with gauze and a double length Tristen Mr. Card was the assistant foreman throughout the case was essential essential throughout components including prepping draping positioning surgical-assist wound closure and dressing application. Surgeon Dr. Valle Door To Door Salesman Surgeon(s) Hiren Ren PA-C Estimated Blood Loss 10 ML Findings Severe OA Specimens A. Right knee bone and tissue Disposition Recovery Room / PACU I attest to the content of the Intraoperative Record and any orders documented therein. Any exceptions are noted below.
[2017-06-10] MEDS ORDERED: ASPEC81 PO (16:19)
[2017-06-10] MEDS ORDERED: RXC5 PO (16:19)
[2017-06-10] MEDS ORDERED: SNK PO (16:19)
[2017-06-10] MEDS ORDERED: ACET-24 PO (16:19)
--- NOTE | 2017-06-10 16:24 | Discharge Instructions ---
Discharge Instructions Date of Service Jun 10, 2017. Admission Reason for Admission: Right Knee Osteoarthritis Discharge Discharge Diagnosis / Problem: Right Knee Djd Discharge Goals Goal(s): Decrease discomfort, Improve function Activity Recommendations Activity Limitations: per Instructions/Follow-up section Weightbearing Status: Right weightbearing (as tolerated) . Instructions / Follow-Up Instructions / Follow-Up ACTIVITY RECOMMENDATIONS: SELF CARE INSTRUCTIONS AFTER TOTAL KNEE REPLACEMENT A. You may need to continue a physical therapy program after discharge from the hospital. There are several options available to you. Your doctor will assist you in selecting the best one for you. 1. An out-patient facility 2 to 3 times a week for therapy or home therapy. 2. Continue working on all exercises taught to you in the hospital. Your goals should be to increase bending of your knee to 90 degrees and beyond and to fully straighten your knee. B. You may progress at your own pace from walking with a walker or crutches to a cane; then to no assistive devices. C. Make walking a part of your daily routine. Be up as much as comfortable with rest periods throughout the day. Rest with leg elevation is very important. Use the ice wrap frequently for the first 3-4 weeks. D. There are no restrictions on activities. You may ride in a car, shop, participate in bonding supervisor and all social activities. E. Wear the long elastic stockings (RAJIV hose) 20 hours a day for 2 weeks after surgery. They can be removed several times a day for laundering and for a bath. F. You may shower, no tub baths until cleared by your doctor. SPECIAL CARE INSTRUCTIONS: VERY IMPORTANT TO READ AND REVIEW A. There are a few signs you need to watch for after you are home. Call [facility] if you notice any of the followin. Increased severe knee pain. Some pain is expected especially when you exercise. 2. Increased swelling in your leg or knee; pain or swelling of the calf muscle in either lower leg. 3. Any fluid drainage from the incision. 4. Shortness of breath or chest pain. B. Please call [facility] at if you have any concerns or questions about your operation or recovery. The doctor or his nurse will return your call promptly. C. You must take antibiotics before dental work, bladder, bowel or other surgery. Your doctor will provide you with a permanent care to carry describing this precaution. IMPORTANT: * REMEMBER TO TAKE ASPIRIN, 81 MG, TWICE DAILY FOR 4 WEEKS UNLESS OTHERWISE DIRECTED. THIS IS YOUR BLOOD THINNER. * HIGH RISK PATIENTS MAY BE PRESCRIBED A STRONGER BLOOD THINNER. THIS WILL BE PROVIDED AT DISCHARGE. * CALL IF INCREASED PAIN, REDNESS, DRAINAGE OR FEVER GREATER THAT 101. * WEAR RAJIV HOSE 20 HOURS PER DAY FOR 2 WEEKS. * Silverlon- This is a large adhesive bandage that contains silver ions. This helps your incision heal by fighting off bacteria and protecting it from the outside environment. You are permitted to shower with this dressing. This will remain on your incision for 7 days and then should be removed. Some visible blood or drainage through the dressing window is normal. If there is significant drainage or leaking noted before the 7 days notify your doctor's office immediately. Once removed, keep incision clean and dry. If there is any drainage or redness noted, please call your surgeon. . FOLLOW UP VISIT: If appointment is not already scheduled: Please call [facility] to make a follow-up appointment for 2 weeks after your surgery at . Current Hospital Diet Patient's current hospital diet: Regular Diet Discharge Diet Recommended Diet: Regular Diet Procedures Procedures Performed: Right total knee arthroplasty patient's right knee was prepped and draped in usual sterile manner. Limb was exsanguinated with an Esmarch bandage and tourniquet was inflated to 200 300 mmHg. Longitudinal incision was made some retained sutures sharp dissected electrocautery masses usually hemostasis. The and parapatellar incision was made the patella was everted and he was flexed. The fat pad was removed exposing severe osteoarthritis. The next medullary alignment guide was placed and the proximal tibial cut was made after clearing the medial face the tibia soft tissue with a Atwood and holding it back with a blunt Francine. This Broom bone fragment was removed. Next attention was turned to the femur where drill was used to get axis to the femoral canal. The flexible IM alignment guide was placed and a distal femoral cut was made. Following this Surya Accurso made using a size 4 chamfer cutting guide. The notch was prepared this bone fragment was reserved and prepared for placement femoral canal. The trial femoral component was impacted into the position and the hip quite well. Next the tibia was subluxed anteriorly using a blunt Francine and a size 3 tibial component was chosen size views this baseplate was placed. The punch was utilized to create the receiving hole for the tibial splines. Trial reduction was carried out and a size 11 mm Pauling gave good reproduction of soft tissue tension with collateral stability. The patella was then prepared using a reamer and drill trial to patella component was placed and the knee was able to be taken through full range of motion without any patellar instability. Wound was irrigated at removal wall trial components joint mix injected pericapsular really final hemostasis with WAS obtained especially posteriorly and the cement was mixed while the bone ends were dried. All components were cemented into position excess cement was removed and the knee was held in extension while cement hardened Hemovac drain was placed and the Betadine soak was placed and then suctioned out the wound was closed #1 Vicryl used to close the extensor mechanism some retained sutures closed using 0 Dexon and skin was closed with a sip strip sterile dressing of Adaptic [place] sterile dressing with a Silverlon was applied with gauze and a double length Tristen Mr. Card was the radiology physician assistant throughout the case was essential essential throughout components including prepping draping positioning surgical-assist wound closure and dressing application. Pending Studies Studies pending at discharge: no Medical Emergencies . Who to Call and When: Medical Emergencies: If at any time you feel your situation is an emergency, please call 911 immediately. . Non-Emergent Contact Non-Emergency issues call your: Surgeon Call Non-Emergent contact if: temperature is above 101.5, your pain is not controlled, your pain is worsening, wound has increased drainage, wound has increased redness . "Provider Documentation" section prepared by Hiren Ren. . VTE Core Measure Inpt VTE Proph given/why not?: Other Anticoagulation, T.E.D. Stockings, SCD's [place] Drug Monitoring Program Search Results: patient reviewed within database, no issues identified
[2017-06-10] MEDS: TRAMADOL HCL 50 MG TAB PO PRN (19:09)
[2017-06-10] MEDS: PRAVASTATIN SOD 20 MG TAB PO SCH (21:33)
[2017-06-11 00:24] VITALS: BP 143/75; PULSE 59; TEMP 36.7; O2SAT 93
[2017-06-11] MEDS: OXYCODONE HCL IR 5 MG TAB (IMMEDIATE RELEASE) PO PRN ×3 (00:38→13:20)
[2017-06-11] MEDS: TRAMADOL HCL 50 MG TAB PO PRN (03:24)
[2017-06-11] MEDS: ACETAMINOPHEN 500 MG TAB PO SCH ×3 (05:27→22:25)
--- NOTE | 2017-06-11 07:19 | Orthopedic Progress Note ---
Orthopedic Progress Note Date of Service Jun 11, 2017. Subjective Post OP Day: 2 Reports: feeling well, Denies: chest pain, SOB, nausea / vomiting Additional Notes: Pt woke up last night with moderate pain in the operative knee. Took some time for it to be controlled but is better this AM. Would like to see how she does with PT today before she decides on discharge plans. Discussed adding another pain medication but she would like to wait to see how she does. Objective calves soft nontender, N/V intact, dressing C/D/I, A&O x3, toes mobile Date Time Temp Pulse Resp B/P (MAP) Pulse Ox O2 Delivery O2 Flow Rate FiO2 06/11/17 00:24 36.7 59 16 143/75 (97) 93 Nasal Cannula 06/10/17 20:15 Room Air 06/10/17 15:12 36.8 71 16 143/68 (93) 93 Room Air 06/10/17 12:17 36.7 66 12 134/64 (87) 94 Room Air 06/10/17 09:19 95 Room Air 06/10/17 07:52 36.7 66 14 140/64 (89) 95 Room Air 06/10/17 07:47 Room Air Assessment & Plan Assessment: POD#2 SP RIGHT TKA Plan: If pain control is adequate, we will plan for discharge to home today. 10:42 RECHECKED PATIENT. STILL REQUIRING IV PAIN MEDICATION. WILL RECHECK HER LATER TODAY BUT DISCUSSED THAT WE MAY KEEP HER ANOTHER DAY AND START HER ON MS CONTIN PRITI MIMS. PT AGREEABLE. Inhouse Planning Pain Management: Celebrex, PO Tylenol, Oxy IR DVT Prophylaxis: TEDs, SCDs, ASA Discharge Planning Discharge Planning: home with home health ( [facility] ) Pain Management: PO Tylenol, Oxy IR DVT Prophylaxis: TEDs, ASA Therapy: Physical Therapy
[2017-06-11 07:56] VITALS: BP 148/72; PULSE 50; TEMP 36.4; O2SAT 94
[2017-06-11 08:02] VITALS: O2SAT 94
[2017-06-11] MEDS: PAROXETINE 20 MG TAB PO SCH (08:31)
[2017-06-11] MEDS: PANTOprazole SOD 40 MG TAB PO SCH (08:31)
[2017-06-11] MEDS: ENALAPRIL MALEATE 10 MG TAB PO SCH (08:31)
[2017-06-11] MEDS: AMLODIPINE BESYLATE 5 MG TAB PO SCH (08:32)
[2017-06-11] MEDS: FERROUS GLUCONATE 324 MG TAB PO SCH ×3 (08:32→17:39)
[2017-06-11] MEDS: MULTIVITAMIN TAB PO SCH (08:32)
[2017-06-11] MEDS: CHOLECALCIFEROL 1000 INTER.UNIT TAB PO SCH (08:33)
--- NOTE | 2017-06-11 09:07 | Progress Note ---
Subjective Date of Service: Jun 11, 2017. Subjective Pt evaluation today including: conversation w/ patient, physical exam, chart review, lab review, review of studies, conversation w/ student union consultant, review of inpatient medication list Reported pain was not well controlled last night, required IV pain medicine, for now still have significant pain, 5-6 out of 10 in right knee Otherwise eating drinking okay, deny fever and chill, deny constipation Review of Systems Constitutional: No fever, No chills, No sweats, No weight loss, No weakness, No fatigue, No problem reported Eyes: No worsening of vision, No eye pain, No redness, No discharge, No diplopia ENT: No hearing loss, No unusual epistaxis, No nasal symptoms, No sore throat, No tinnitus, No dental problems, No trouble swallowing Respiratory: No cough, No sputum, No wheezing, No shortness of breath, No dyspnea on exertion, No dyspnea at rest, No hemoptysis Cardiac: No chest pain, No orthopnea, No PND, No edema, No claudication, No palpitations Abdomen: No pain, No nausea, No vomiting, No diarrhea, No constipation Musculoskeletal: + joint pain, No muscle pain, No swelling, No calf pain Female : No dysuria, No urinary frequency, No hematuria, No incontinence, No abnormal vaginal bleeding, No vaginal discharge Neurologic: No memory loss, No paralysis, No weakness, No numbness/tingling, No vertigo, No balance problems Psychiatric: No depression symptoms, No anhedonism, No anxiety, No insomnia, No substance abuse Heme: No abnormal bleeding/bruising, No clotting problems, No swollen lymph nodes, No night sweats Endo: No fatigue, No excessive thirst, No excessive urination Skin: No rash, No itch, No new/changing skin lesions, No color change, No bleeding Objective Vital Signs Date Time Temp Pulse Resp B/P (MAP) Pulse Ox O2 Delivery O2 Flow Rate FiO2 06/11/17 08:02 94 Room Air 06/11/17 07:56 36.4 50 14 148/72 (97) 94 Room Air 06/11/17 00:24 36.7 59 16 143/75 (97) 93 Nasal Cannula 06/10/17 20:15 Room Air 06/10/17 15:12 36.8 71 16 143/68 (93) 93 Room Air 06/10/17 12:17 36.7 66 12 134/64 (87) 94 Room Air 06/10/17 09:19 95 Room Air Physical Exam General Appearance: WD/WN, no apparent distress, + obese Eyes: normal inspection, PERRL, EOMI, sclerae normal ENT: normal ENT inspection, hearing grossly normal, pharynx normal Neck: supple, no adenopathy, thyroid normal, no JVD, no carotid bruits, trachea midline Respiratory/Chest: chest non-tender, lungs clear, normal breath sounds, no respiratory distress, no accessory muscle use Cardiovascular: regular rate, rhythm, no edema, no gallop, no JVD, no murmur Abdomen: normal bowel sounds, non tender, soft, no organomegaly, no pulsatile mass Extremities: normal inspection, no pedal edema, no calf tenderness, normal capillary refill, pelvis stable, + pertinent finding (right knee post op in dress, bilateral lower extremity no edema, pulses positive and symmetric) Neurologic/Psychiatric: size painter II-XII nml as tested, no motor/sensory deficits, alert, normal mood/affect, oriented x 3 Skin: normal color, warm/dry, no rash Lymphatic: no adenopathy Assessment and Plan 82 yo F with PMHx of hypertension, hyperlipidemia, GERD, anemia, COPD presents for an elective right TKA by Dr. Yanez on 06/09/17. S/P R TKA: Stable - Pain Management, IVF, DVT Prophylaxis, PT/OT per primary - ASA 81 mg BID for DVT ppx per primary team Hypertension: Vitamin D Deficiency: Hyperlipidemia: Depression: The above conditions are stable, continue current care Continue home medication Discharge plan will be per primary team Continued [facility] stay due to: other Discharge planning: home (or, per primary team)
[2017-06-11] MEDS: DOCUSATE SODIUM 100 MG CAP PO SCH ×2 (10:04→21:10)
[2017-06-11] MEDS: ASPIRIN 81 MG ECTAB PO SCH ×2 (10:04→21:10)
[2017-06-11 15:37] VITALS: BP 126/68; PULSE 53; TEMP 36.6; O2SAT 93
[2017-06-11] MEDS: MoRPHine SULFATE CR 15 MG TAB (MS CONTIN) PO SCH (19:15)
[2017-06-11] MEDS: PRAVASTATIN SOD 20 MG TAB PO SCH (21:10)
[2017-06-11 22:00] VITALS: BP 111/64; PULSE 70
[2017-06-11 22:53] VITALS: BP 143/68; PULSE 58; TEMP 36.8; O2SAT 92
[2017-06-12] MEDS: TRAMADOL HCL 50 MG TAB PO PRN (05:00)
[2017-06-12] MEDS: ACETAMINOPHEN 500 MG TAB PO SCH ×2 (05:01→14:36)
[2017-06-12] MEDS: MoRPHine SULFATE CR 15 MG TAB (MS CONTIN) PO SCH (07:17)
[2017-06-12] MEDS: PANTOprazole SOD 40 MG TAB PO SCH (07:17)
[2017-06-12] MEDS: OXYCODONE HCL IR 5 MG TAB (IMMEDIATE RELEASE) PO PRN ×2 (07:55→15:26)
[2017-06-12 08:10] VITALS: BP 158/71; PULSE 55; TEMP 36.8; O2SAT 93
[2017-06-12] MEDS: CHOLECALCIFEROL 1000 INTER.UNIT TAB PO SCH (09:13)
[2017-06-12] MEDS: DOCUSATE SODIUM 100 MG CAP PO SCH (09:13)
[2017-06-12] MEDS: ENALAPRIL MALEATE 10 MG TAB PO SCH (09:14)
[2017-06-12] MEDS: MULTIVITAMIN TAB PO SCH (09:14)
[2017-06-12] MEDS: PAROXETINE 20 MG TAB PO SCH (09:14)
[2017-06-12] MEDS: FERROUS GLUCONATE 324 MG TAB PO SCH ×2 (09:14→14:34)
[2017-06-12] MEDS: ASPIRIN 81 MG ECTAB PO SCH (09:15)
[2017-06-12] MEDS: AMLODIPINE BESYLATE 5 MG TAB PO SCH (09:15)
--- NOTE | 2017-06-12 11:03 | Progress Note ---
Subjective Date of Service: Jun 12, 2017. Subjective Pt evaluation today including: conversation w/ patient, physical exam, chart review, lab review, review of studies, conversation w/ organization development consultant, review of inpatient medication list Reportedly was having a lot of pain in the right knee when up and walk, is getting better No other complaint eating and bowel movement discussed Review of Systems Constitutional: No fever, No chills, No sweats, No weight loss, No weakness, No fatigue, No problem reported Eyes: No worsening of vision, No eye pain, No redness, No discharge, No diplopia ENT: No hearing loss, No unusual epistaxis, No nasal symptoms, No sore throat, No tinnitus, No dental problems, No trouble swallowing Respiratory: No cough, No sputum, No wheezing, No shortness of breath, No dyspnea on exertion, No dyspnea at rest, No hemoptysis Cardiac: No chest pain, No orthopnea, No PND, No edema, No claudication, No palpitations Abdomen: No pain, No nausea, No vomiting, No diarrhea, No constipation Musculoskeletal: + joint pain, No muscle pain, No swelling, No calf pain Female : No dysuria, No urinary frequency, No hematuria, No incontinence, No abnormal vaginal bleeding, No vaginal discharge Neurologic: No memory loss, No paralysis, No weakness, No numbness/tingling, No vertigo, No balance problems Psychiatric: No depression symptoms, No anhedonism, No anxiety, No insomnia, No substance abuse Heme: No abnormal bleeding/bruising, No clotting problems, No swollen lymph nodes, No night sweats Endo: No fatigue, No excessive thirst, No excessive urination Skin: No rash, No itch, No new/changing skin lesions, No color change, No bleeding Objective Vital Signs Date Time Temp Pulse Resp B/P (MAP) Pulse Ox O2 Delivery O2 Flow Rate FiO2 06/12/17 07:20 Room Air 06/12/17 07:20 Room Air 06/11/17 23:45 Room Air 06/11/17 22:53 36.8 58 17 143/68 (93) 92 Room Air 06/11/17 22:00 70 111/64 (80) 06/11/17 15:37 36.6 53 16 126/68 (87) 93 Room Air 06/11/17 15:10 Room Air Physical Exam General Appearance: WD/WN, no apparent distress Eyes: normal inspection, PERRL, EOMI, sclerae normal ENT: normal ENT inspection, hearing grossly normal, pharynx normal Neck: supple, no adenopathy, thyroid normal, no JVD, no carotid bruits, trachea midline Respiratory/Chest: chest non-tender, normal breath sounds, no respiratory distress, no accessory muscle use, + decreased breath sounds Cardiovascular: regular rate, rhythm, no edema, no gallop, no JVD, no murmur Abdomen: normal bowel sounds, non tender, soft, no organomegaly, no pulsatile mass Extremities: non-tender, normal inspection, no pedal edema, no calf tenderness , normal capillary refill, pelvis stable, + pertinent finding (right knee in dress,) Neurologic/Psychiatric: credit control administrator II-XII nml as tested, no motor/sensory deficits, alert, normal mood/affect, oriented x 3 Skin: normal color, warm/dry, no rash Lymphatic: no adenopathy Assessment and Plan 82 yo F with PMHx of hypertension, hyperlipidemia, GERD, anemia, COPD presents for an elective right TKA by Dr. Yanez on 06/09/17. S/P R TKA: Stable - Pain Management, IVF, DVT Prophylaxis, PT/OT per primary - ASA 81 mg BID for DVT ppx per primary team Hypertension: Vitamin D Deficiency: Hyperlipidemia: Depression: The above conditions are stable, continue current care Continue home medication No new input from hospitalist Discharge plan will be per primary team Continued [facility] stay due to: other Discharge planning: home (or, per primary team)
[2017-06-12] MEDS ORDERED: ONDANSETRON 4MG OD TAB ONE (11:19)
[2017-06-12] MEDS ORDERED: NURSING VERBAL MED ORDER ONE (11:30)
[2017-06-12] MEDS ORDERED: ONDANSETRON 4 MG TAB PO PRN (11:30)
[2017-06-12 11:58] VITALS: BP 129/68; PULSE 56; TEMP 36.7; O2SAT 88
[2017-06-12] MEDS ORDERED: ONDA8TAB12 PO (12:19)
[2017-06-12 13:03] LABS: MEAN CELL VOLUME 91.2 fL (80-100); MEAN CORPUSCULAR HEMOGLOBIN 29.3 pg (25-34); MEAN CORPUSCULAR HGB CONC 32.2 g/dl (32-36); MEAN PLATELET VOLUME 10.3 fL (7.4-10.4); PLATELET COUNT 243 K/uL (130-400); RED BLOOD COUNT 3.51 M/uL (4.2-5.4); WHITE BLOOD COUNT 8.95 K/uL (4.8-10.8)
[2017-06-12 13:50] VITALS: BP 129/68; PULSE 56; TEMP 36.7; O2SAT 88
[2017-06-12] MEDS ORDERED: MORP-157 PO (15:16)
--- NOTE | 2017-06-13 09:39 | DISCHARGE SUMMARY ---
DISCHARGE DIAGNOSIS: Degenerative joint disease, right knee. SECONDARY DIAGNOSES: Hypertension, hyperlipidemia, depression, anemia. CONSULTS: Nenita Walker PA-C/Judy Ornelas M.D. COMPLICATIONS: None. PROCEDURES: Right total knee arthroplasty performed by Dr. Valle on 06/09/2017. BRIEF HISTORY: As dictated in history and physical. HOSPITAL SUMMARY: The patient was admitted on the above date and had the above-noted surgery performed which she tolerated well. On first postoperative day, she was feeling well and had no complaints. Calves were soft, nontender, neurovascularly intact. Dressings clean, dry and intact. Toes were mobile. Vital signs were stable. He was afebrile. She was started on physical therapy protocol and continued on DVT prophylaxis and pain management. Hemoglobin was 10.0 and she was continued on medical management per [facility] hospitalist service. By her second postoperative day, she was feeling well and had no complaints. She had pain the previous evening in the operative knee and took some time to get controlled, but was much better controlled that morning. She was going to do her physical therapy and see how her pain control and would continue from there. Calves were soft and nontender, neurovascularly intact. Dressings were clean, dry and intact. Toes were mobile. Vital signs were stable. She is afebrile. Later on that morning after PT she was still requiring IV pain medication. At that point in time MS Contin b.i.d. was started and she was continued on her protocol. The rest of her stay was essentially uneventful and by 06/12/2017 the patient was seen and discharged by Henry Wilcox PA-C. Vital signs remaining stable. She was afebrile and she was remaining medically stable and it was felt that she could be discharged to home. For further review, please see chart. LAB AND X-RAY DATA: As per chart. DISCHARGE INSTRUCTIONS: The patient was discharged to home in satisfactory condition up with [facility] services. ACTIVITY: Weightbearing as tolerated right lower extremity. DIET: Regular. Follow TKA instruction sheets and special care instructions as noted. Follow up with Dr. Valle up in 2 weeks. The patient to call for appointment if one has not been made for you. DISCHARGE MEDICATIONS: Tylenol 1000 mg p.o. q. 8 hours for 30 days, aspirin 81 mg p.o. b.i.d., MS Contin 15 mg p.o. q. 12 hours, Zofran 8 mg p.o. q. 8 hours p.r.n., oxycodone 5-10 mg p.o. q. 4 hours p.r.n., senna 8.6 one tab p.o. at bedtime. Resume home medications as listed and stop taking your old 650 mg Tylenol dosage.
--- NOTE | 2017-06-17 07:50 | EDITING REQUIRED CODING QUERY ---
CODING QUERY To promote full compliance with coding requirements relating to patient care, provider participation is requested in all cases of chemical tester uncertainty. Please assist us with the question(s) below: Coding Question(s): Dr. Valle, The operative report states that the surgery was on 06/10 while all other documents state 06/09. Please clarify the correct date of surgery. ( ) 06/09/17 ( ) 06/10/17 Physician's Response(s): Thank you for your time, YOEL Mcmahon, [employer]THOD[employer]IST
== END 2017-06-12 15:31 | disposition home health service (06) | DRG 470 ==
LOC: C.ACU 09:13 → C.3E 10:20 → ENRESERV 13:44
PROC: 0SRC0J9 Replacement of Right Knee Joint with Synthetic Substitute, Cemented, Open Approach (ICD-10-PCS; principal; 2017-06-09 11:00)
DX: M17.11 Unilateral primary osteoarthritis, right knee (principal); G89.18 Other acute postprocedural pain; J44.9 Chronic obstructive pulmonary disease, unspecified; I10 Essential (primary) hypertension; E78.5 Hyperlipidemia, unspecified; E55.9 Vitamin D deficiency, unspecified; D64.9 Anemia, unspecified; M81.0 Age-related osteoporosis without current pathological fracture; F41.9 Anxiety disorder, unspecified; F32.9 Major depressive disorder, single episode, unspecified; Z87.891 Personal history of nicotine dependence; Z98.1 Arthrodesis status; Z79.51 Long term (current) use of inhaled steroids; Z79.899 Other long term (current) drug therapy